=== PATIENT | female | born 1950 | race Caucasian/White ===

== ENCOUNTER → 2019-05-14 | Day surgery (SDC) | payer MEDICARE, BC | LOC: MSO 08:21 | DX: Z12.11 Encounter for screening for malignant neoplasm of colon (principal); Z85.43 Personal history of malignant neoplasm of ovary; Z88.0 Allergy status to penicillin; Z88.8 Allergy status to other drugs, medicaments and biological substances; Z83.71 Family history of colonic polyps; Z87.19 Personal history of other diseases of the digestive system; Z90.710 Acquired absence of both cervix and uterus; Z90.89 Acquired absence of other organs; Z79.52 Long term (current) use of systemic steroids | CPT/HCPCS: G0105; 00812; J2704; J7120 ==